=== PATIENT | female | born 1990 | race American Indian/Alaskan Native ===

== ENCOUNTER 2021-06-25 13:05 | Emergency (ER) | payer SELFPAY ==
[2021-06-25 13:22] VITALS: BP 156/92
--- NOTE | 2021-06-26 09:45 | Electrocardiograph Report ---
[facility] Test Date: 2021-06-25 Test Time: 13:28:02 Pat Name: ONDINA MCKAY Department: Room: Gender: F Lsw: ALVARADO : 1990 Requested By: JUDITH CALDERA Order Number: [id number] Reading MD: Jaron Tran Measurements Intervals [place] Rate: 122 P: 52 NH: 154 QRS: -27 QRSD: 74 T: 29 QT: 308 QTc: 439 Interpretive Statements Sinus tachycardia Probable left atrial enlargement Anterior infarct, age undetermined No previous ECG available for comparison Electronically Signed On 06-26-2021 9:45:23 EDT by Jaron Tran
== END 2021-06-26 01:00 | disposition left against medical advice (07) ==
LOC: ED 13:05
DX: R73.9 Hyperglycemia, unspecified (principal); R42 Dizziness and giddiness; Z53.21 Procedure and treatment not carried out due to patient leaving prior to being seen by health care provider
CPT/HCPCS: 82962; 93005

== ENCOUNTER 2021-06-26 16:35 | Emergency (ER) | payer MEDICAID ==
[2021-06-26 16:51] VITALS: BP 146/100
== END 2021-06-27 07:00 | disposition left against medical advice (07) ==
LOC: ED 16:35
DX: R73.9 Hyperglycemia, unspecified (principal); Z53.21 Procedure and treatment not carried out due to patient leaving prior to being seen by health care provider
CPT/HCPCS: 82962